=== PATIENT | female | born 1955 | race Caucasian/White ===

== ENCOUNTER 2018-06-30 02:33 | Inpatient (IN) ==
[2018-06-30] MEDS ORDERED: MORPHINE 4 MG/1 ML VIAL IV STA (02:53)
[2018-06-30] MEDS ORDERED: SODIUM CHLORIDE 0.9% 1,000 ML IV STA (02:53)
[2018-06-30] MEDS ORDERED: ONDANSETRON 4 MG/2 ML VIAL IV STA (02:53)
[2018-06-30 03:56] LABS: Basophils % 0.2 % (0.0-0.8); Eosinophils % 0.1 % (0.00-10.9); Hematocrit 38.9 VOL% (35.7-47.0); Hemoglobin 13.1 GM/DL (12.0-16.0); Immature Granulocytes % 0.3 %; Immature Granulocytes Absolute 0.04 #; Lymphocytes % 8.4 % (21.3-54.2); Mean Corpuscular HGB Conc 33.7 GM/DL (32-36); Mean Corpuscular Hemoglobin 31 PG (27-34); Mean Corpuscular Volume 92.6 FL (87-102); Mean Platelet Volume 10.3 FL (9.6-12.0); Monocytes # 0.5 10*3/uL (0.11-0.8); Monocytes % 4.3 % (1.7-12.7); Neutrophils # 10.2 10*3/uL (1.4-7.4); Neutrophils % 86.7 % (38.7-73.9); Platelet Count 232 T/CUMM (130-400); Red Cell Distribution Width 13.1 % (9.3-17.3); White Blood Count 11.7 T/CUMM (4-12)
[2018-06-30 04:15] LABS: Albumin 4.1 G/DL (3.4-5.0); Bilirubin,Total 0.5 MG/DL (0.2-1.0); Calcium 9.2 MG/DL (8.5-10.1); Osmolality,Calculated 272.2 MOS/KG (273-304); Potassium 3.8 MMOL/L (3.5-5.1); Total Protein 7.8 G/DL (6.4-8.3)
[2018-06-30] MEDS ORDERED: ONDANSETRON 4 MG/2 ML VIAL IV PRN ×2 (04:38→11:32)
[2018-06-30] MEDS ORDERED: MORPHINE 4 MG/1 ML VIAL IV PRN (04:38)
[2018-06-30] MEDS: DEXTROSE 5% LACTATED RINGERS 1,000 ML IV SCH ×3 (05:45→23:19)
[2018-06-30] MEDS: PANTOPRAZOLE 40 MG VIAL IV SCH (08:30)
[2018-06-30] MEDS ORDERED: ALBUMIN 5% 12.5 GM/250 ML VIAL IV ONE (11:27)
[2018-06-30] MEDS ORDERED: PROPOFOL 200 MG/20 ML VIAL IV ONE (11:27)
[2018-06-30] MEDS ORDERED: SEVOFLURANE 1 UNIT/15 MINUTE INH ONE (11:27)
[2018-06-30] MEDS ORDERED: fentaNYL 100 MCG/2 ML VIAL ONE (11:28)
[2018-06-30] MEDS ORDERED: ETOMIDATE 40 MG/20 ML VIAL IV ONE (11:28)
[2018-06-30] MEDS ORDERED: MIDAZOLAM 2 MG/2 ML VIAL ONE (11:28)
[2018-06-30] MEDS ORDERED: ONDANSETRON 4 MG/2 ML VIAL ONE ×2 (11:28→11:29)
[2018-06-30] MEDS ORDERED: DEXAMETHASONE 10 MG/1 ML VIAL ONE (11:28)
[2018-06-30] MEDS ORDERED: GLYCOPYRROLATE 0.4 MG/2 ML VIAL ONE (11:29)
[2018-06-30] MEDS ORDERED: NEOSTIGMINE 10 MG/10 ML VIAL ONE (11:29)
[2018-06-30] MEDS: HYDROmorphone 2 MG/1 ML VIAL IV PRN ×2 (11:29→11:39)
[2018-06-30] MEDS ORDERED: ROCURONIUM 100 MG/10 ML VIAL IV ONE (11:29)
[2018-06-30] MEDS ORDERED: HYDROmorphone 2 MG/1 ML VIAL ONE (11:29)
[2018-06-30] MEDS ORDERED: PHENYLEPHRINE 1 MG/10 ML SYRINGE IV ONE (11:29)
[2018-06-30] MEDS ORDERED: SUCCINYLCHOLINE 200 MG/10 ML VIAL ONE (11:29)
[2018-06-30] MEDS ORDERED: LACTATED RINGERS 2,000 ML IV ONE (11:29)
[2018-06-30] MEDS ORDERED: NALOXONE 0.4 MG/ML VIAL IV PRN (11:53)
[2018-06-30 12:09] LABS: Apearance,Urine CLEAR (Clear); Bacteria,Urine Occasional /HPF (Few); Bilirubin,Urine Negative (Negative); Blood, Urine Negative (Negative); Glucose,Urine (UA) 150 mg/dL (Negative); Hyaline Casts,Urine 3 /LPF (0-3); Ketones,Urine 5 mg/dL (Negative); Mucus,Urine Occasional /LPF (Occasional); Nitrite,Urine Negative (Negative); Protein,Urine Negative; RBC,Urine 1 /HPF (0-4); Squamous Epithelial Cell,Urine Occasional /HPF (0-10); Urine Color Yellow (Yellow); Urine Urobilinogen < 2.0 EU/DL (0.2-1.0); WBC,Urine 2 /HPF (0-6)
[2018-06-30] MEDS: MORPHINE PCA 150 MG/30 ML SYRINGE IV SCH (15:43)
[2018-07-01] MEDS: DEXTROSE 5% LACTATED RINGERS 1,000 ML IV SCH ×3 (07:01→22:56)
[2018-07-01] MEDS: PANTOPRAZOLE 40 MG VIAL IV SCH (10:23)
[2018-07-02 05:17] LABS: Basophils % 0.3 % (0.0-0.8); Eosinophils % 0.4 % (0.00-10.9); Hematocrit 37.3 VOL% (35.7-47.0); Hemoglobin 12.6 GM/DL (12.0-16.0); Immature Granulocytes % 0.3 %; Immature Granulocytes Absolute 0.02 #; Lymphocytes # 0.8 10*3/uL (1.4-4.0); Lymphocytes % 11.8 % (21.3-54.2); Mean Corpuscular HGB Conc 33.8 GM/DL (32-36); Mean Corpuscular Hemoglobin 31 PG (27-34); Mean Corpuscular Volume 90.3 FL (87-102); Mean Platelet Volume 9.9 FL (9.6-12.0); Monocytes # 0.9 10*3/uL (0.11-0.8); Monocytes % 12.1 % (1.7-12.7); Neutrophils # 5.3 10*3/uL (1.4-7.4); Neutrophils % 75.1 % (38.7-73.9); Platelet Count 221 T/CUMM (130-400); Red Blood Count 4.13 MC/CUMM (3.8-5.5); Red Cell Distribution Width 12.7 % (9.3-17.3); White Blood Count 7.1 T/CUMM (4-12)
[2018-07-02 05:47] LABS: Calcium 8.3 MG/DL (8.5-10.1); Osmolality,Calculated 245.8 MOS/KG (273-304); Potassium 3.6 MMOL/L (3.5-5.1)
[2018-07-02] MEDS: DEXTROSE 5% LACTATED RINGERS 1,000 ML IV SCH (06:06)
[2018-07-02] MEDS: PANTOPRAZOLE 40 MG VIAL IV SCH (08:39)
[2018-07-02] MEDS: DEXT 5% NACL 0.45% KCL 20 MEQ 20 MEQ/1,000 ML BAG IV SCH ×3 (10:44→20:26)
[2018-07-03] MEDS: DEXT 5% NACL 0.45% KCL 20 MEQ 20 MEQ/1,000 ML BAG IV SCH ×2 (04:20→13:14)
[2018-07-03 05:30] LABS: Basophils % 0.2 % (0.0-0.8); Eosinophils # 0.1 10*3/uL (0.0-0.87); Eosinophils % 0.8 % (0.00-10.9); Hematocrit 35.4 VOL% (35.7-47.0); Hemoglobin 12.2 GM/DL (12.0-16.0); Immature Granulocytes % 0.5 %; Immature Granulocytes Absolute 0.05 #; Lymphocytes # 0.8 10*3/uL (1.4-4.0); Lymphocytes % 8.4 % (21.3-54.2); Mean Corpuscular HGB Conc 34.5 GM/DL (32-36); Mean Corpuscular Hemoglobin 31 PG (27-34); Mean Corpuscular Volume 88.7 FL (87-102); Mean Platelet Volume 9.7 FL (9.6-12.0); Monocytes # 0.8 10*3/uL (0.11-0.8); Monocytes % 8.4 % (1.7-12.7); Neutrophils % 81.7 % (38.7-73.9); Platelet Count 216 T/CUMM (130-400); Red Blood Count 3.99 MC/CUMM (3.8-5.5); Red Cell Distribution Width 12.2 % (9.3-17.3); White Blood Count 9.8 T/CUMM (4-12)
[2018-07-03 05:41] LABS: Calcium 8.1 MG/DL (8.5-10.1); Osmolality,Calculated 245.8 MOS/KG (273-304); Potassium 3.8 MMOL/L (3.5-5.1)
[2018-07-03] MEDS: MORPHINE PCA 150 MG/30 ML SYRINGE IV SCH ×3 (09:34→18:45)
[2018-07-03] MEDS: DEXT 5% NACL 0.9% KCL 20 MEQ 20 MEQ/1,000 ML BAG IV SCH ×2 (14:10→21:34)
[2018-07-03] MEDS: PANTOPRAZOLE 40 MG VIAL IV SCH (14:13)
[2018-07-03] MEDS: ENOXAPARIN 40 MG/0.4 ML SYRINGE SUBCUT SCH (21:06)
[2018-07-04] MEDS: DEXT 5% NACL 0.9% KCL 20 MEQ 20 MEQ/1,000 ML BAG IV SCH ×2 (05:17→20:26)
[2018-07-04 05:39] LABS: Calcium 8.3 MG/DL (8.5-10.1); Osmolality,Calculated 260.7 MOS/KG (273-304); Potassium 3.7 MMOL/L (3.5-5.1)
[2018-07-04] MEDS: PANTOPRAZOLE 40 MG VIAL IV SCH (14:12)
[2018-07-04] MEDS: MORPHINE PCA 150 MG/30 ML SYRINGE IV SCH (14:15)
[2018-07-04] MEDS: ENOXAPARIN 40 MG/0.4 ML SYRINGE SUBCUT SCH (20:52)
[2018-07-05] MEDS: DEXT 5% NACL 0.9% KCL 20 MEQ 20 MEQ/1,000 ML BAG IV SCH (05:16)
[2018-07-05 08:27] LABS: Calcium 8.7 MG/DL (8.5-10.1); Potassium 3.8 MMOL/L (3.5-5.1)
[2018-07-05] MEDS ORDERED: MORPHINE 4 MG/1 ML VIAL IV PRN (10:37)
[2018-07-05] MEDS: PANTOPRAZOLE 40 MG VIAL IV SCH (10:41)
[2018-07-05] MEDS: ENOXAPARIN 40 MG/0.4 ML SYRINGE SUBCUT SCH (21:03)
[2018-07-06 05:40] LABS: Osmolality,Calculated 265.2 MOS/KG (273-304); Potassium 3.8 MMOL/L (3.5-5.1)
[2018-07-06] MEDS: PANTOPRAZOLE 40 MG VIAL IV SCH (09:49)
[2018-07-06 12:29] VITALS: BP 132/64
== END 2018-07-06 13:20 | disposition home or self-care (01) | DRG 330 ==
LOC: N.EDINP 02:33 → N.ED 02:33 → N.4E 05:17
PROVIDERS: ADMIT Surgery; ATTEND Surgery